=== PATIENT | female | born 1965 | race Caucasian/White ===

== ENCOUNTER 2022-04-29 16:22 | Emergency (ER) | payer MEDICARE ==
[~2022-04-29] VITALS: Ht 177.8 cm; Wt 129.3 kg
[~2022-04-29 16:22] MED LIST: REBIF IM
[2022-04-29] MEDS ORDERED: Ultram50 MG PO (17:18)
== END 2022-04-29 17:47 | disposition home or self-care (01) ==
LOC: ER 16:22
DX: M25.562 Pain in left knee (principal); G35 Multiple sclerosis; Z88.5 Allergy status to narcotic agent
CPT/HCPCS: 73562-LT; J1885

== ENCOUNTER → 2023-01-20 | Outpatient (CLI) | payer MEDICARE ==
[~2023-01-20] MED LIST changes: +Ultram50 MG PO
== END ==
LOC: LAB SHORT 15:50 → LAB 15:50
DX: R31.9 Hematuria, unspecified (principal)
CPT/HCPCS: 87086

== ENCOUNTER 2023-01-24 10:30 | Emergency (ER) | payer MEDICARE ==
[~2023-01-24] VITALS: Ht 180.3 cm; Wt 122.5 kg
[2023-01-24 11:20] LABS: BASOPHILS ABSOLUTE AUTO 0.07 K/mm3 (0.00-0.23); BASOPHILS PERCENT AUTO 1 % (0-2); EOSINOPHILS ABSOLUTE AUTO 0.19 K/mm3 (0.00-0.68); EOSINOPHILS PERCENT AUTO 4 % (0-6); Hematocrit 40.5 % (33.0-51.0); Hemoglobin 13.5 g/dL (11.5-16.0); IMMATURE GRAN PERCENT AUTO 0 % (0-1); LYMPHOCYTES ABSOLUTE AUTO 1.76 K/mm3 (0.84-5.20); LYMPHOCYTES PERCENT AUTO 34 % (21-46); MONOCYTES ABSOLUTE AUTO 0.53 K/mm3 (0.16-1.47); MONOCYTES PERCENT AUTO 10 % (4-13); Mean Corpuscular HGB Conc 33.3 g/dL (31.5-36.5); Mean Corpuscular Volume 87 fL (80-100); Mean Platelet Volume 10.3 fL (9.1-12.4); NEUTROPHILS ABSOLUTE AUTO 2.57 K/mm3 (1.96-9.15); NEUTROPHILS PERCENT AUTO 50 % (41-73); Platelet Count 274 K/mm3 (150-400); RDW Coefficient Variation 13.2 % (11.7-14.2); RDW Standard Deviation 41.2 fL (35.1-46.3); Red Blood Cell Count 4.66 M/mm3 (3.80-5.20); White Blood Cell Count 5.12 K/mm3 (4.00-11.30)
[2023-01-24 11:48] LABS: Albumin, Blood 3.6 g/dL (3.4-5.0); Bilirubin, Total 0.6 mg/dL (0.1-1.0); Calcium, Blood 9.1 mg/dL (8.5-10.1); Creatinine, Blood 0.77 mg/dL (0.40-1.00); Globulin, Blood 3.6 g/dL (2.2-4.0); Potassium, Blood 4.3 mmol/L (3.5-5.5); Total Protein, Blood 7.2 g/dL (6.4-8.2)
[2023-01-24 12:32] LABS: Source, Urine Clean Catch
[2023-01-24 12:36] LABS: Bilirubin, Urine Neg (Neg); Blood, Urine Neg (Neg); Glucose Qualitative, Urine Neg (Neg); Ketones, Urine Neg (Neg); Leukocyte Esterase, Urine 1+ (Neg); Nitrite, Urine Neg (Neg); Protein, Urine Neg (Neg); Specific Gravity, Urine 1.005 (1.003-1.022); Urobilinogen, Urine NORM (Normal)
[2023-01-24 12:42] LABS: Appearance, Urine Clear (Clear); Color, Urine Yellow (P-Yellow)
[2023-01-24 12:43] LABS: Bacteria Rare /hpf; Red Blood Cells, Urine 0-2 /hpf (0-2); Squamous Epithelial Cells Few /hpf (Few); White Blood Cells, Urine 0-2 /hpf (0-5)
[2023-01-24 12:44] LABS: Other Crystals Few /hpf
[2023-01-24 13:00] VITALS: BP 156/77
== END 2023-01-24 12:58 | disposition home or self-care (01) ==
LOC: ER 10:30
PROVIDERS: Emergency Medicine
DX: S39.011A Strain of muscle, fascia and tendon of abdomen, initial encounter (principal); X58.XXXA Exposure to other specified factors, initial encounter; Z88.5 Allergy status to narcotic agent; Z79.899 Other long term (current) drug therapy
CPT/HCPCS: 74176; 80053; 81001; 85025; 96374; 99284-25; J1885

== ENCOUNTER 2024-05-29 12:18 | Emergency (ER) | payer OTHER, MEDICARE ==
[~2024-05-29] VITALS: Ht 180.3 cm; Wt 111.1 kg
[2024-05-29 12:24] VITALS: BP 160/99
[2024-05-29] MEDS ORDERED: Amoxicillin/Clavulanate K 875 MG Tab PO ONE (12:30)
[2024-05-29] MEDS ORDERED: AMOCLA875 PO (12:30)
[2024-05-29] MEDS ORDERED: Diphth,Pertuss(Acell),Tet Vac 0.5 ML VIAL IM ONE (12:30)
== END 2024-05-29 12:50 | disposition home or self-care (01) ==
LOC: ER 12:18
DX: S51.852A Open bite of left forearm, initial encounter (principal); S80.872A Other superficial bite, left lower leg, initial encounter; Z23 Encounter for immunization; Z88.5 Allergy status to narcotic agent; W54.0XXA Bitten by dog, initial encounter
CPT/HCPCS: 90471; 90715; 99283-25; A9270